=== PATIENT | female | born 1980 | race Caucasian/White ===

== ENCOUNTER 2017-05-22 16:01 | Inpatient (IN) | payer BC ==
[~2017-05-22] VITALS: Ht 162.6 cm; Wt 75.0 kg
[2017-05-22] MEDS ORDERED: LACTATED RINGER'S 1000ML 1,000 ML IV PRN (16:37)
[2017-05-22] MEDS ORDERED: LACTATED RINGER'S 1000ML 500 ML IV PRN ×2 (16:39→19:28)
[2017-05-22] MEDS ORDERED: OXYTOCIN 30 UNITS/500ML NSS IV PRN (16:45)
[2017-05-22] MEDS ORDERED: ONDANSETRON INJ 2 MG/ML 2 ML VIAL IV PRN ×2 (16:45→19:30)
[2017-05-22] MEDS ORDERED: PATIENT'S HEIGHT AND/OR WEIGHT NEEDED SCH (17:00)
[2017-05-22 17:04] LABS: HEMATOCRIT 34.6 % (37-47); MEAN CELL VOLUME 95.3 fL (80-100); MEAN CORPUSCULAR HEMOGLOBIN 33.9 pg (25-34); MEAN CORPUSCULAR HGB CONC 35.5 g/dl (32-36); MEAN PLATELET VOLUME 10.3 fL (7.4-10.4); PLATELET COUNT 154 K/uL (130-400); RED BLOOD COUNT 3.63 M/uL (4.2-5.4); WHITE BLOOD COUNT 12.75 K/uL (4.8-10.8)
--- NOTE | 2017-05-22 17:17 | HISTORY & PHYSICAL EXAMINATION ---
DATE OF ADMISSION: 05/22/2017 LABOR AND DELIVERY ADMISSION NOTE CHIEF COMPLAINT: Leakage of fluid. HISTORY OF PRESENT ILLNESS: The patient is a 36-year-old G1, P0 at 38 weeks and 5 days of gestation who felt a gush of fluid leakage at 3:00 p.m. followed by trickling of clear fluid since then. She was in the office this morning due to a pinkish mucus discharge and cramping. Her cervix was found to be 2 cm dilated and there was no blood in the vagina. She was sent home. She has been feeling mild cramping since then. She denies contractions and vaginal bleeding. She denies abdominal pain, fever, chills, nausea, vomiting, headache, chest pain, shortness of breath or leg pain. She reports good movements. Her has been uncomplicated except: 1. Advanced maternal age. 2. Family history of pulmonary embolism. Her workup was negative. 3. History of anxiety, no meds. PAST MEDICAL HISTORY: As above. She has a history of anxiety. She has never used medications. She has been seeing a counselor. PAST SURGICAL HISTORY: None. ALLERGIES: No known drug allergies. SOCIAL HISTORY: The patient denies smoking, alcohol or drug use. She is . She lives with her and she works at [employer]. MEDICATIONS: vitamins, folic acid 400 mcg daily, vitamin C 500 mg daily. food-based iron 20 mg daily, calcium with vitamin D. GYNECOLOGIC HISTORY: The patient denies any history of STDs including Chlamydia, gonorrhea, herpes and this is her first . LABS: Her blood type is O positive, antibody screen negative, rubella equivocal, RPR nonreactive, hepatitis B surface antigen negative and her H&H was 12/37. GC chlamydia cultures were negative and her Glucola was elevated at 163 mg per deciliter, 3-hour OGGT was normal. Her H&H was 10.6/30.7 at 28 weeks and her GBS culture was negative on May 03 and her repeat H&H was 11.8/34.4. Her first panorama screen testing was negative and her second trimester MSAFP testing for neural tube defect was negative. PHYSICAL EXAMINATION: GENERAL: The patient is alert, oriented x3, not in acute distress. VITAL SIGNS: Stable. Afebrile. CARDIOVASCULAR SYSTEM: S1, S2, RRR. LUNGS: Clear to auscultation bilaterally. ABDOMEN: Soft, gravid. EXTREMITIES: Nontender, no edema. PELVIC: Perineum is wet, she is grossly ruptured. Nitrazine testing positive on the perineum as well as on her soaked pads and her cervix is 2 cm dilated, 50% effaced, head minus 3, ballottable. heart rate 140s, reactive and toco mild irregular contractions every 4-5 minutes. ASSESSMENT AND PLAN: The patient is a 36-year-old G1, P0 at 38 weeks and 5 days of gestation presenting with premature rupture of membranes at term. No signs of labor. Vital signs stable, afebrile. GBS negative. heart rate reassuring. Discussed the findings with her and the recommendations of augmentation / induction of labor with low dose Pitocin to decrease the risk for intra-amniotic infection. Discussed the pros and cons of expectant management versus induction of labor. She understands and all questions were answered. She desires to be induced with low dose Pitocin and she plans to have epidural for pain. Plan is admit her, start IV fluids. CBC and blood bank on hold and start low dose Pitocin and continuously monitor. MTDD
[2017-05-22] MEDS: LACTATED RINGER'S 1000ML 1,000 ML IV SCH ×2 (17:40→20:12)
[2017-05-22 17:57] VITALS: Ht 162.6 cm; Wt 75.0 kg
[2017-05-22] MEDS ORDERED: FOLI1TAB7 PO (18:09)
[2017-05-22] MEDS ORDERED: PRENTAB26 PO (18:09)
[2017-05-22] MEDS ORDERED: VITACAP26 (18:12)
[2017-05-22] MEDS ORDERED: MAGN400T6 PO (18:12)
[2017-05-22] MEDS ORDERED: FENTANYL 2MCG/ML ROPIV 1.25MG/ML 100ML BAG EPI ONE (18:58)
[2017-05-22] MEDS ORDERED: BUPIVACAINE 0.25% 30 ML VIAL ONE (18:58)
[2017-05-22] MEDS ORDERED: EpHEDrine SULFATE INJ 50 MG/ML AMP ONE (18:58)
[2017-05-22] MEDS ORDERED: FENTANYL CITRATE INJ 50 MCG/1 ML 2 ML VIAL ONE (18:59)
[2017-05-22] MEDS ORDERED: NALOXONE HCL INJ 1 MG in SODIUM CHLORIDE 0.9% 1000ML 1,000 ML IV PRN (19:28)
[2017-05-22] MEDS ORDERED: PROMETHAZINE HCL INJ 6.25 MG in SODIUM CHLORIDE 0.9% 50ML 50 ML IV PRN (19:30)
[2017-05-22] MEDS ORDERED: NALOXONE HCL INJ 0.4 MG/1 ML VIAL/CARP IV PRN (19:30)
[2017-05-22] MEDS ORDERED: DiphenhydrAMINE HCL 50 MG/ML VIAL IV PRN (19:30)
[2017-05-22] MEDS ORDERED: FENTANYL 2MCG/ML ROPIV 1.25MG/ML 100ML BAG EPI PRN (19:30)
[2017-05-22] MEDS ORDERED: NALBUPHINE HCL INJ 10 MG/ML AMP IV PRN (19:30)
[2017-05-22] MEDS ORDERED: EpHEDrine SULFATE INJ 50 MG/ML AMP IV PRN (19:30)
[2017-05-23] MEDS: LACTATED RINGER'S 1000ML 1,000 ML IV SCH (01:08)
[2017-05-23] MEDS ORDERED: METHYLERGONOVINE MALEATE 0.2 MG/ML AMP ONE (03:50)
[2017-05-23] MEDS ORDERED: LACTATED RINGER'S 1000ML 1,000 ML IV SCH (03:53)
[2017-05-23] MEDS ORDERED: METHYLERGONOVINE MALEATE 0.2 MG/ML AMP IM ONE (04:00)
[2017-05-23] MEDS ORDERED: BENZOCAINE 20% AER SPR 82.5 GM CAN EXT PRN (04:00)
[2017-05-23] MEDS ORDERED: HYDROCORTISONE ACETATE 25 MG SUPP PR PRN (04:00)
[2017-05-23] MEDS ORDERED: ACETAMINOPHEN 325 MG TAB PO PRN (04:00)
[2017-05-23] MEDS ORDERED: MEASLES, MUMPS & RUBELLA VIRUS VIAL SQ. ONE (04:00)
[2017-05-23] MEDS ORDERED: DIPHTHERIA/TETANUS/PERTUSSIS 0.5 ML SYR/VIAL IM. ONE (04:00)
[2017-05-23] MEDS ORDERED: OXYTOCIN 30 UNITS/500ML NSS IV PRN (04:00)
[2017-05-23] MEDS ORDERED: SUPERCREAM 0.870 % 15GM JAR EXT PRN (04:00)
[2017-05-23] MEDS ORDERED: OXYCODONE/ACETAMINOPHEN 5-325 TAB PO PRN (04:00)
[2017-05-23] MEDS ORDERED: LANOLIN OINT EXT PRN ×2 (04:00)
--- NOTE | 2017-05-23 04:52 | Anesthesiology Progress Note ---
Anesthesia Post Op Note Date & Time May 23, 2017 at 04:52 Vital Signs Pain Intensity: 0.0 Notes Mental Status: alert / awake / arousable, participated in evaluation Pt Amnestic to Procedure: Yes Nausea / Vomiting: adequately controlled Pain: adequately controlled Airway Patency, RR, SpO2: stable & adequate BP & HR: stable & adequate Hydration State: stable & adequate Anesthetic Complications: no major complications apparent
--- NOTE | 2017-05-23 04:54 | Anesthesia Procedure Note ---
Anesthesia Epidural Removal Nt Date & Time May 23, 2017 at 04:53 Vital Signs Pain Intensity: 0.0 Notes Mental Status: alert / awake / arousable, participated in evaluation Nausea / Vomiting: adequately controlled Pain: adequately controlled Airway Patency, RR, SpO2: stable & adequate BP & HR: stable & adequate Hydration State: stable & adequate Neuraxial Anesthesia: was administered Anesthetic Complications: no major complications apparent, pt satisfied with anesthetic care Epidural: removed without complications, with tip intact
--- NOTE | 2017-05-23 06:15 | DELIVERY SUMMARY ---
DATE OF OPERATION: 05/23/2017 TIME OF DELIVERY: 03:18 a.m. TIME OF DELIVERY OF PLACENTA: 03:42 a.m. DETAILS OF DELIVERY: The patient was found to be fully dilated and desired to push. She pushed for about 1-1/2 hours and delivered the head without difficulty. Shoulders were delivered with minimal traction and the baby was handed off to the mother where mouth and nose were suctioned. Cord was clamped x2 and cut after the pulsation ceased per patient's request. It was at about 2 minutes. Cord blood was obtained, it was 3-vessel cord. Vagina and perineum first-degree lacerations, there was a small second-degree perineal laceration at the posterior fourchette confirmed with rectal exam. Excellent sphincter was noted. Gloves were changed. This laceration was repaired with 2-0 Vicryl in a running locked fashion and then patient was found to be passing clots about 400 mL. Placenta was still attached to the anterior uterine wall and then with fundal massage, the placenta was found to be in the vagina, delivered spontaneously intact and complete. Uterus was explored and found to be empty. Lower segment was cleared off all clots and debris. Fundus was firm. Total EBL was 400. Patient was started on IV Oxytocin infusion and given IM Methergine. Mom and baby tolerated the procedure well with sponge, lap, needle and instruments were correct x2. Baby was a viable female . Apgars 8/9. 3178 grams, 7 lb. No complications happened and I was present during both procedures. I attest to the content of the Intraoperative Record and any orders documented therein. Any exceptions are noted below. KRISHNA
[2017-05-23 06:30] VITALS: BP 129/80; PULSE 97; TEMP 36.8
[2017-05-23] MEDS: PRENATAL VITAMIN TAB PO SCH (07:32)
[2017-05-23] MEDS: DOCUSATE SODIUM 100 MG CAP PO SCH ×2 (07:32→20:16)
[2017-05-23] MEDS: IBUPROFEN 600 MG TAB PO PRN ×2 (07:34→19:28)
[2017-05-23 07:40] VITALS: BP 117/79; PULSE 92; TEMP 36.4; O2SAT 98
[2017-05-23] MEDS: FERROUS SULFATE 325 MG TAB PO SCH ×2 (08:00→09:00)
[2017-05-23] MEDS: METHYLERGONOVINE MALEATE 0.2 MG TAB PO SCH ×4 (08:59→20:16)
[2017-05-23 11:30] VITALS: BP 114/75; PULSE 78; TEMP 36.6; O2SAT 96
[2017-05-23 16:20] VITALS: BP 137/81; PULSE 96; TEMP 36.8; O2SAT 97
[2017-05-23 19:55] VITALS: BP 113/72; PULSE 85; TEMP 37.1
[2017-05-23 23:30] VITALS: BP 107/70; PULSE 84; TEMP 36.9
[2017-05-24 03:30] VITALS: BP 94/62; PULSE 77; TEMP 36.5
[2017-05-24] MEDS: IBUPROFEN 600 MG TAB PO PRN ×3 (03:46→18:19)
[2017-05-24 06:12] LABS: HEMATOCRIT 28.7 % (37-47)
[2017-05-24] MEDS: FERROUS SULFATE 325 MG TAB PO SCH ×2 (08:05→08:07)
[2017-05-24] MEDS: DOCUSATE SODIUM 100 MG CAP PO SCH ×2 (08:05→20:01)
[2017-05-24] MEDS: PRENATAL VITAMIN TAB PO SCH (08:05)
[2017-05-24 08:15] VITALS: BP 96/62; PULSE 80; TEMP 36.4
--- NOTE | 2017-05-24 10:56 | OB/GYN Progress Note ---
UN[facility]WE[facility] HEMMER Progress Note Date of Service May 24, 2017. Subjective conversation w/ patient, physical exam Ambulation: ambulating normally Voiding: no voiding problems Passing Gas: Yes Diet Tolerance: Regular Diet Lochia: Small Feeding Type: Breast Feeding Objective Vital Signs Date Time Temp Pulse Resp B/P (MAP) Pulse Ox O2 Delivery O2 Flow Rate FiO2 05/24/17 08:15 36.4 80 16 96/62 (73) Room Air 05/24/17 08:15 Room Air 05/24/17 03:30 36.5 77 18 94/62 (73) Room Air 05/23/17 23:30 Room Air 05/23/17 23:30 36.9 84 18 107/70 (82) Room Air 05/23/17 19:55 37.1 85 18 113/72 (86) Room Air 05/23/17 16:20 36.8 96 18 137/81 (99) 97 Room Air 05/23/17 16:20 97 Room Air 05/23/17 11:30 36.6 78 20 114/75 (88) 96 Room Air Physical Exam General Appearance: WELL-APPEARING, NO APPARENT DISTRESS Abdomen: non tender, soft Fundus: Firm Extremities: non-tender, normal inspection, no pedal edema Laboratory Results Last 24 Hours Test 05/24/17 05:32 Hemoglobin 9.7 g/dL Hematocrit 28.7 % Assessment and Plan Post- Day Number: 1 Continue Routine Care: tent d/c in AM
[2017-05-24 15:30] VITALS: BP 107/69; PULSE 82; TEMP 36.7
[2017-05-24] MEDS ORDERED: BISACODYL 5 MG TABEC PO SCH (20:00)
[2017-05-25 00:25] VITALS: BP 101/66; PULSE 77; TEMP 36.7; O2SAT 98
[2017-05-25] MEDS ORDERED: BISACODYL 10 MG SUPP PR PRN (07:00)
[2017-05-25 07:11] LABS: HEMATOCRIT 26.9 % (37-47); MEAN CELL VOLUME 97.5 fL (80-100); MEAN CORPUSCULAR HGB CONC 33.8 g/dl (32-36); MEAN PLATELET VOLUME 9.9 fL (7.4-10.4); PLATELET COUNT 153 K/uL (130-400); RED BLOOD COUNT 2.76 M/uL (4.2-5.4); WHITE BLOOD COUNT 12.97 K/uL (4.8-10.8)
[2017-05-25] MEDS: PRENATAL VITAMIN TAB PO SCH (07:30)
[2017-05-25] MEDS: DOCUSATE SODIUM 100 MG CAP PO SCH (07:30)
[2017-05-25] MEDS: IBUPROFEN 600 MG TAB PO PRN (07:30)
[2017-05-25] MEDS: FERROUS SULFATE 325 MG TAB PO SCH (07:31)
[2017-05-25 07:35] VITALS: BP 108/83; PULSE 75; TEMP 36.5
--- NOTE | 2017-05-25 08:58 | OB/GYN Progress Note ---
DIRECTOR OF MIDWIFERY/STAFF MIDWIFE Progress Note Date of Service: May 25, 2017. Patient is seen and examined. She feels well, no complaints. Ambulating without dizziness Voiding without difficulty Tolerating regular diet with out N&V Bleeding is minimal No fever/ chills/ CP/ SOB/ N&V/ Leg pain Breast feeding without problems Date Time Temp Pulse Resp B/P (MAP) Pulse Ox O2 Delivery O2 Flow Rate FiO2 05/25/17 00:25 36.7 77 18 101/66 (78) 98 Room Air 05/25/17 00:25 98 Room Air 05/24/17 15:30 36.7 82 20 107/69 (82) Room Air 05/24/17 15:30 Room Air Last 24 Hours Test 05/25/17 06:46 White Blood Count 12.97 K/uL Red Blood Count 2.76 M/uL Hemoglobin 9.1 g/dL Hematocrit 26.9 % Mean Corpuscular Volume 97.5 fL Mean Corpuscular Hemoglobin 33.0 pg Mean Corpuscular Hemoglobin Concent 33.8 g/dl RDW Standard Deviation 50.8 fL RDW Coefficient of Variation 14.3 % Platelet Count 153 K/uL Mean Platelet Volume 9.9 fL PE: General: Alert, orientedx3, NAD Abd: soft, NT, fundus firm, below Umbilicus Perineum intact, Lochia rubra minimal Ext; NT, no edema AP: 36 yo s/p , ppd# 2 VSS Afebrile doing well Continue routine care All questions were answered Instructions were given when to call D/C home , f/u in office
[2017-05-25] MEDS ORDERED: CLC100 PO (09:00)
[2017-05-25] MEDS ORDERED: MTR600X PO (09:00)
[2017-05-25] MEDS ORDERED: ACET-1047 PO (09:00)
--- NOTE | 2017-05-25 09:01 | Discharge Instructions ---
Discharge Instructions Date of Service May 25, 2017. Admission Reason for Admission: Amniotic Fluid Leaking Discharge Discharge Diagnosis / Problem: Discharge Goals Goal(s): Routine recovery after delivery Medications Continue Dispensed Medications: lansinoh Activity Recommendations Activity Limitations: as noted below ACTIVITY RECOMMENDATIONS: * Gradual return to full activity over the next 2-3 weeks. * No lifting - nothing heavier than baby over the next 2-3 weeks. * Do not engage in vigorous exercise, sexual activity or sports until cleared by your physician. * Do not drive or operate any motorized equipment until cleared by your physician. * You may shower/bathe daily. BREAST CARE: If you are not breast feeding: * Wear a supportive bra 24 hours a day for one to two weeks. * Avoid stimulating your breasts and nipples as much as possible during the first few weeks after delivery. * When taking a shower, have the warm water hit your back, not breasts. * When your breasts feel full, apply ice packs. Usually three to four times a day helps ease the discomfort. * Take a mild pain medication (Tylenol/Motrin) when you are uncomfortable. If breast feeding: * Use breast milk to lubricate nipples. Lansinoh cream may be used for sore nipples. You do not need to remove cream prior to breast feeding. If using a different brand of cream, check the label for directions regarding removal of cream prior to nursing. * Wear a supportive bra. * If having problems with breasts or breast feeding, call a solar energy consultant and designer or your health care provider. EPISIOTOMY CARE: After delivery, if you have an episiotomy (stitches), the following steps will ease discomfort and aid healing. * For the first 24 hours after delivery, place ice packs next to your episiotomy to help reduce swelling. * After the first 24 hour-period, sitz baths, either portable or in the tub, are suggested. A shower with a shower arm sprayed over the episiotomy may be comforting. * Nidhi care should be done after each voiding and bowel movement. Squirt warm water from a plastic bottle over the perineum (region of the body between the anus and urinary opening) and pat dry. * Use Dermoplast to ease discomfort. Shake container. [place] directly over the episiotomy. * Place a Tucks on a clean sanitary pad next to your episiotomy. OVER THE COUNTER MEDICATION: * For discomfort or pain, you may use Acetaminophen (Tylenol), Ibuprofen (Advil ), or Naproxen (Aleve) following the package directions. * For constipation you may use Colace following the package directions. SPECIAL CARE INSTRUCTIONS: When you are discharged from the hospital, it is important for you to follow the instructions listed below: * During the first week at home, you should be able to care for yourself and your baby. In addition, the usual light household activities are encouraged. * Limit your activities to the way you feel. Do not try to clean the house or move furniture. Be sensible. * If you actively engage in sports and have done so up until the time of your delivery, you may resume these activities as soon as you feel able. This may take up to one month or even longer. Use good judgment. * Continue to take your vitamins for at least six weeks after the of your baby. * Your diet need not be limited unless you were on a special diet before your delivery. Breast-feeding mothers need around 2500 calories per day and at least 64-80 ounces of fluid per day (8 to 10 glasses). * You should eat foods from the four major food groups. Crash diets or fad diets are to be avoided. Eating lean meats, fresh fruits and vegetables, low-fat dairy products, high fiber foods and a regular exercise program, will help you get back to your pre- weight without putting your health at risk. * Constipation is sometimes a problem after delivery. Take a mild laxative as needed. If breast feeding, Milk of Magnesia is acceptable to use. You may use a suppository or Fleets enema if no episiotomy. * A daily shower or tub bath is suggested. Be sure to thoroughly and gently dry the perineum. * A bloody vaginal discharge will usually continue until around four weeks post . A small amount of bleeding may continue for as long as six weeks. Vaginal discharge changes from the bright red bleeding after delivery to pink then brownish and finally yellowish-pink before becoming white and disappearing. * Bleeding may increase with activity. Your first period may come in 4-8 weeks. If you are breast feeding, your period may be delayed even longer. * Iantha (sex) can begin whenever both you and your partner feel comfortable and do not have any form of genital infection. It is recommended that you wait until after your return appointment and discuss with your physician. If you have questions, please talk to your health care practitioner. A condom should be used to prevent infection and . * Foreplay, gentle intercourse and lubrication is very important the first several times to prevent pain. A water-based lubricant such as K-Y jelly or Astroglide may be used. * Tampons may be used six weeks after delivery. * Douching should be avoided for 6 weeks after delivery. * If you have RH negative blood and your baby is RH positive, you will receive RHOGAM by injection prior to discharge. The nurse will give you a card to keep with you that has the date and place that you received RHOGAM after delivery. * During your care, you had a Rubella screen done to check for the presence of rubella antibodies in your blood. If your test was negative, you will receive a Rubella vaccine prior to discharge. This vaccine may cause a fever, soreness at the injection site and flu-like symptoms. If these symptoms persist, notify your health care practitioner. is not advised for three months after a Rubella vaccine. There is a higher chance of having a baby with defects if conceived within three months of getting the vaccine. * If you were discharged 24 hours from delivery or before 48 hours: Visiting nurses will come to your home 48 hours after discharge to assess you and your baby. The visiting nurse will meet with you while you are in the hospital to arrange a time and get directions to your home. * Verbalizes understanding of car seat law as reviewed with patient nursing. * Car Seat hand-out given and reviewed with patient by nursing. * Shaken baby information reviewed with patient by nursing. Call you doctor if: * Heavy bleeding (saturating several pads an hour) or passing clots the size of your fist. * A fever >101 degrees F (38.3 degrees C) on two occasions four hours apart and/or chills. * Unusual pain in the pelvic or vaginal areas. * "Baby Blues" lasting longer than two weeks. If you have any questions or concerns, call your health care practitioner at . FOLLOW-UP VISIT: * Please call the office at to schedule a 6 week examination. It is important you keep this appointment. * It is important for you to make arrangements for either yearly or twice yearly check-ups thereafter. . Current Hospital Diet Patient's current hospital diet: Regular OB Diet Discharge Diet Recommended Diet: Regular Diet Pending Studies Studies pending at discharge: no Medical Emergencies . Who to Call and When: Medical Emergencies: If at any time you feel your situation is an emergency, please call 911 immediately. . Non-Emergent Contact Non-Emergency issues call your: Surgeon, Specialist Call Non-Emergent contact if: temperature is above 100.5, your pain is not controlled, your pain is worsening, your pain is unusual for you . . "Provider Documentation" section prepared by Debra Tinoco. . VTE Core Measure Inpt VTE Proph given/why not?: Treatment not indicated
[2017-05-25 11:23] VITALS: BP_DIAS 83; PULSE 75; TEMP 36.5
== END 2017-05-25 13:10 | disposition home or self-care (01) | DRG 775 ==
LOC: C.OPB 16:01 → C.LD 16:01 → C.OPB 16:44 → C.OBG 05-23 06:39
PROVIDERS: ADMIT Obstetrics & Gynecology; ATTEND Obstetrics & Gynecology
PROC: 0KQM0ZZ Repair Perineum Muscle, Open Approach (ICD-10-PCS; principal; 2017-05-23)
PROC: 10E0XZZ Delivery of Products of Conception, External Approach (ICD-10-PCS; principal; 2017-05-23)
DX: O42.02 Full-term premature rupture of membranes, onset of labor within 24 hours of rupture (principal); O70.1 Second degree perineal laceration during delivery; Z3A.38 38 weeks gestation of pregnancy; Z37.0 Single live birth

== ENCOUNTER 2018-03-24 14:38 | Emergency (ER) | payer BC, OTHER ==
[~2018-03-24] VITALS: Ht 162.6 cm; Wt 67.4 kg
[~2018-03-24 14:38] MED LIST: ACET-1047 PO; CLC100 PO; MAGN400T6 PO; MTR600X PO; PRENTAB26 PO
[2018-03-24 14:44] VITALS: Ht 162.6 cm; Wt 67.4 kg
[2018-03-24] MEDS ORDERED: IBUP-1050 PO (15:18)
[2018-03-24] MEDS ORDERED: hydrOXYzine HCL 25 MG TAB PO STA (15:18)
[2018-03-24] MEDS ORDERED: PRENTAB26 PO (15:18)
[2018-03-24] MEDS ORDERED: MAGN250T3 PO (15:18)
[2018-03-24 15:38] LABS: BASO % 0.2 %; BASO ABS # 0.01 K/uL (0-0.2); EOS % 2.3 %; EOS ABS # 0.12 K/uL (0-0.5); HEMATOCRIT 38.5 % (37-47); HEMOGLOBIN 13.2 g/dL (12.0-16.0); IG# 0.01 K/uL (0.00-0.02); LYMPH % 28.3 %; LYMPH ABS # 1.45 K/uL (1.2-3.4); MEAN CELL VOLUME 92.3 fL (80-100); MEAN CORPUSCULAR HEMOGLOBIN 31.7 pg (25-34); MEAN CORPUSCULAR HGB CONC 34.3 g/dl (32-36); MEAN PLATELET VOLUME 9.8 fL (7.4-10.4); MONO ABS # 0.36 K/uL (0.11-0.59); NEUT ABS # 3.17 K/uL (1.4-6.5); PLATELET COUNT 198 K/uL (130-400); RED CELL DISTRIBUTION WIDTH CV 12.9 % (11.5-14.5); RED CELL DISTRIBUTION WIDTH SD 43.3 fL (36.4-46.3); WHITE BLOOD COUNT 5.12 K/uL (4.8-10.8)
--- NOTE | 2018-03-24 15:53 | DIAGNOSTIC IMAGING REPORT ---
CHEST ONE VIEW PORTABLE HISTORY: Atypical chest pain COMPARISON: None. FINDINGS: The lungs are clear. Cardiac silhouette is normal in size. No pleural effusions. No pneumothorax. IMPRESSION: No acute process. Electronically signed by: Doron Larry M.D. 03/24/2018 3:52 PM Dictated Date/Time: 03/24/2018 3:50 PM
[2018-03-24 16:05] LABS: ALBUMIN 3.9 gm/dl (3.4-5.0); ALKALINE PHOSPHATASE 93 U/L (45-117); ALT/SGPT 22 U/L (12-78); AST/SGOT 12 U/L (15-37); BLOOD UREA NITROGEN 11 mg/dl (7-18); CARBON DIOXIDE 26 mmol/L (21-32); CREATININE 0.75 mg/dl (0.60-1.20); GLUCOSE 109 mg/dl (70-99); POTASSIUM 3.6 mmol/L (3.5-5.1); SODIUM 139 mmol/L (136-145); TOTAL PROTEIN 7.9 gm/dl (6.4-8.2)
[2018-03-24] MEDS ORDERED: HYDR1CAP85 PO (16:25)
[2018-03-24 16:38] VITALS: BP 129/88; PULSE 109; TEMP 37.2; O2SAT 100
--- NOTE | 2018-03-24 17:49 | EMERGENCY ROOM VISIT NOTE ---
History First contact with patient: 15:04 Chief Complaint: ANXIETY Stated Complaint: HEART RACING, WARMTH IN CHEST History of Present Illness The patient is a 37 year old female who presents to the Emergency Room with complaints of anxiety, heart racing and chest pressure. Patient states she has a significant anxiety issue, particularly when it comes to her health. 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 She describes it as "very stressful." Patient also has a [id number] baby who she recently stopped breast-feeding. The baby also started going to daycare when she started her new job. At the same time the patient has stopped cosleeping and is attempting to have a baby sleep in the crib. She describes "not much sleep." Patient denies any thoughts of self-harm or harm to anyone else. She states she is here simply to "be sure she is not having a heart attack." She has been evaluated by a mental health counselor in the past. She states her PCP has attempted several anxiety meds many years ago, but nothing recently. She also stopped seeing her therapist when she started her new job. Review of Systems See HPI for pertinent positives & negatives. A total of 10 systems reviewed and were otherwise negative. Past Medical/Surgical History Medical Problems: (1) Amniotic fluid leaking Anxiety Social History Smoking Status: Never Smoker Drug Use: none Marital Status: Housing Status: lives with family Occupation Status: employed Current/Historical Medications Scheduled Ibuprofen (Advil), 200-400 MG PO prn ud Magnesium (Magnesium 250 mg), 250 MG PO DAILY Multivit/Min/Iron/Fol Ac/Pren ( Vitamin), 1 TAB PO DAILY Scheduled PRN Hydroxyzine Pamoate (Vistaril), 25 MG PO q6-8 hrs PRN for Anxiety Physical Exam Vital Signs Date Time Temp Pulse Resp B/P (MAP) Pulse Ox O2 Delivery O2 Flow Rate FiO2 03/24/18 16:38 37.2 109 19 129/88 100 03/24/18 16:05 109 19 129/88 100 Room Air 03/24/18 15:06 101 03/24/18 14:44 37.2 118 20 157/91 97 Room Air Physical Exam Vital signs reviewed. General: Anxious, tearful, well-appearing 37-year-old female, in no significant distress. HEENT: No scleral icterus, PERRLA, neck supple. Atraumatic. Cardiovascular: Tachycardic but regular, no extra sounds. Pulmonary: Clear to auscultation bilaterally, hyperventilating Abdomen: Soft, nontender, nondistended, positive bowel sounds. Musculoskeletal: Atraumatic, no peripheral edema. Neurologic: Patient awake alert and oriented x 3 Skin: Warm, dry, no rash Medical Decision & Procedures ER Provider Diagnostic Interpretation: CHEST ONE VIEW PORTABLE HISTORY: Atypical chest pain COMPARISON: None. FINDINGS: The lungs are clear. Cardiac silhouette is normal in size. No pleural effusions. No pneumothorax. IMPRESSION: No acute process. Electronically signed by: Doron Larry M.D. 03/24/2018 3:52 PM Dictated Date/Time: 03/24/2018 3:50 PM Laboratory Results 03/24/18 15:30 Red Blood Count 4.17, Mean Corpuscular Volume 92.3, Mean Corpuscular Hemoglobin 31.7, Mean Corpuscular Hemoglobin Concent 34.3, Mean Platelet Volume 9.8, Neutrophils (%) (Auto) 62.0, Lymphocytes (%) (Auto) 28.3, Monocytes (%) (Auto) 7.0, Eosinophils (%) (Auto) 2.3, Basophils (%) (Auto) 0.2, Neutrophils # (Auto) 3.17, Lymphocytes # (Auto) 1.45, Monocytes # (Auto) 0.36, Eosinophils # (Auto) 0.12, Basophils # (Auto) 0.01 03/24/18 15:30 Test 03/24/18 15:30 White Blood Count 5.12 K/uL (4.8-10.8) Red Blood Count 4.17 M/uL (4.2-5.4) Hemoglobin 13.2 g/dL (12.0-16.0) Hematocrit 38.5 % (37-47) Mean Corpuscular Volume 92.3 fL (80-100) Mean Corpuscular Hemoglobin 31.7 pg (25-34) Mean Corpuscular Hemoglobin Concent 34.3 g/dl (32-36) Platelet Count 198 K/uL (130-400) Mean Platelet Volume 9.8 fL (7.4-10.4) Neutrophils (%) (Auto) 62.0 % Lymphocytes (%) (Auto) 28.3 % Monocytes (%) (Auto) 7.0 % Eosinophils (%) (Auto) 2.3 % Basophils (%) (Auto) 0.2 % Neutrophils # (Auto) 3.17 K/uL (1.4-6.5) Lymphocytes # (Auto) 1.45 K/uL (1.2-3.4) Monocytes # (Auto) 0.36 K/uL (0.11-0.59) Eosinophils # (Auto) 0.12 K/uL (0-0.5) Basophils # (Auto) 0.01 K/uL (0-0.2) RDW Standard Deviation 43.3 fL (36.4-46.3) RDW Coefficient of Variation 12.9 % (11.5-14.5) Immature Granulocyte % (Auto) 0.2 % Immature Granulocyte # (Auto) 0.01 K/uL (0.00-0.02) D-Dimer < 190 ug/L FEU (0-500) Anion Gap 8.0 mmol/L (3-11) Est Creatinine Clear Calc Drug Dose 97.9 ml/min Estimated GFR () 118.9 Estimated GFR (Non- 102.5 BUN/Creatinine Ratio 14.9 (10-20) Calcium Level 9.0 mg/dl (8.5-10.1) Total Bilirubin 0.3 mg/dl (0.2-1) Direct Bilirubin < 0.1 mg/dl (0-0.2) Aspartate Amino Transf (AST/SGOT) 12 U/L (15-37) Alanine Aminotransferase (ALT/SGPT) 22 U/L (12-78) Alkaline Phosphatase 93 U/L (45-117) Troponin I < 0.015 ng/ml (0-0.045) Total Protein 7.9 gm/dl (6.4-8.2) Albumin 3.9 gm/dl (3.4-5.0) Human Chorionic Gonadotropin, Qual NEG (NEG) Medications Administered Medications (Trade) Dose Ordered Sig/Viji Route Start Time Stop Time Status Last Admin Dose Admin Hydroxyzine HCl (Vistaril Tab) 25 mg NOW STAT PO 03/24/18 15:18 03/24/18 15:21 DC 03/24/18 15:18 25 MG ECG Per My Interpretation Indication: chest pain Rate (beats per minute): 113 Rhythm: sinus tachycardia Findings: RBBB (Incomplete), no acute ischemic change, no ectopy ED Course Differential diagnosis: Etiologies such as cardiac ischemia, aortic dissection, pulmonary embolism, anxiety, pneumonia, pneumothorax, musculoskeletal, infections, pericarditis, myocarditis, esophageal rupture, gastrointestinal, as well as others were entertained. Medical Decision This patient was evaluated and appeared to be in no significant distress. She was able to calm down with some symptom resolution just speaking with her at the bedside. It seems as though the patient has a lot of stressors currently with her new baby and job. She also has 2 stepsons that were with her this last week. Patient has no evidence of a AZ or PE. She was given Vistaril 25 mg p.o. with some resolution and no adverse effect. He was strongly recommended to the patient that she establish with psychiatry as she has had some intolerance to anxiety medication in the past and describes Klonopin as the only one that worked well for her. She has an understanding that this can have some addictive potential. She was referred back to her primary care physician for further management. I do not think the patient has adequately explained her symptoms or difficulty to her current PCP. It was recommended that she make contact with her therapist for further management. She will return to the ED for worsening of symptoms or any medical concerns. Blood Pressure Screening Patient's blood pressure: Normal blood pressure Impression Primary Impression: Acute anxiety Departure Information Dispostion Home / Self-Care Condition FAIR Prescriptions Hydroxyzine Pamoate (VISTARIL) 25 Mg Cap 25 MG PO q6-8 hrs Y for Anxiety, #60 CAP Prov: Mandy Up M.D. 03/24/18 Referrals Nahomy Golden DO (PCP) [employer] [employer] Forms HOME CARE DOCUMENTATION FORM, IMPORTANT VISIT INFORMATION Patient Instructions My [facility] Additional Instructions Diagnosis: Mood disorder, acute anxiety Please minimize any stimulants such as caffeine, nicotine. Minimize any exposure to alcohol. Drink plenty of clear fluids. Vistaril 25 mg every 6-8 hours as needed for acute anxiety. Follow-up with your primary care physician within the next 7-10 days for reevaluation. I would recommend follow-up with a psychiatrist as well as an outpatient counselor as soon as possible regarding medication management and your previous intolerance to anxiety treatment. Return to the ED for worsening of symptoms or any medical concerns.
== END 2018-03-24 16:38 | disposition home or self-care (01) ==
LOC: C.EDB 14:39
DX: F41.9 Anxiety disorder, unspecified (principal); Z79.899 Other long term (current) drug therapy